=== PATIENT | male | born 1990 | race African-American/Black ===

== ENCOUNTER 2020-01-22 00:31 | Emergency (ER) | payer MEDICAID, OTHER ==
[~2020-01-22] VITALS: Ht 188 cm; Wt 96.0 kg
[2020-01-22] MEDS ORDERED: TETANUS, DIPHTHERIA, PERTUSSIS VAC/PF 0.5ML (>7YR OLD) IM ONE (00:45)
[2020-01-22] MEDS ORDERED: LIDOCAINE HCL/PF 1% 10 MG/ML 5ML VIAL IJ ONE (00:45)
[2020-01-22] MEDS ORDERED: IBUPROFEN 600MG TABLET PO ONE (00:45)
[2020-01-22] MEDS ORDERED: BACITRACIN ZINC OINT UDPKT TOP ONE (00:45)
[2020-01-22 00:55] VITALS: BP 139/69
[2020-01-22] MEDS ORDERED: ACETAMINOPHEN 325MG TABLET PO ONE (01:45)
== END 2020-01-22 01:54 | disposition home or self-care (01) ==
LOC: ER 00:31
DX: S41.112A Laceration without foreign body of left upper arm, initial encounter (principal); X58.XXXA Exposure to other specified factors, initial encounter; Y93.89 Activity, other specified; Y92.89 Other specified places as the place of occurrence of the external cause; Y99.8 Other external cause status
CPT/HCPCS: 12002; 90471; 90715; 99284; J3490; 12001; 99283